=== PATIENT | female | born 1950 | race Caucasian/White ===

== ENCOUNTER → 2016-11-30 | Outpatient (CLI) | payer BC, MEDICARE ==
[~2016-11-30] MED LIST: REGADENOSON 0.4 MG/5 ML SYRINGE IV ONE
--- NOTE | 2016-11-30 12:08 | NM ---
EXAMINATION TYPE: NM stress lexiscan cardiolite DATE OF EXAM: 11/30/2016 COMPARISON: Chest x-ray 06/17/2015 HISTORY: Abnormal EKG, R 94.31 TECHNIQUE: After the intravenous administration of 10.5 mCi Tc 99m Sestamibi - Cardiolite resting SP ECT images acquired 45 minutes post injection. The patient received 0.4mg Lexiscan, 25.9 mCi Tc 99m Sestamibi - Stress images obtained [address] injection FINDINGS: Review of stress and rest SPECT images demonstrates no distinct perfusion abnormality. Gated analysi s shows normal wall motion with an estimated left ventricular ejection fraction of 53 %. IMPRESSION: No scintigraphic evidence for reversible ischemia.
--- NOTE | 2016-11-30 12:22 | ECHOF ---
Referral Reason:R94.31 Abn Ekg MEASUREMENTS -------- HEIGHT: 157.5 cm WEIGHT: 81.2 kg BP: 204/94 RVIDd: 2.3 cm (< 3.3) IVSd: 1.4 cm (0.6 - 1.1) LVIDd: 3.7 cm (3.9 - 5.3) LVPWd: 1.1 cm (0.6 - 1.1) IVSs: 1.7 cm LVIDs: 2.4 cm LVPWs: 1.3 cm LA Diam: 2.8 cm (2.7 - 3.8) LAESV Index (A-L): 11.36 ml/m Ao Diam: 2.7 cm (2.0 - 3.7) AV Cusp: 1.9 cm (1.5 - 2.6) MV EXCURSION: 14.946 mm (> 18.000) MV EF SLOPE: 25 mm/s (70 - 150) EPSS: 0.3 cm MV E Faraz: 0.93 m/s MV DecT: 161 ms MV A Faraz: 1.39 m/s MV E/A Ratio: 0.67 FINDINGS -------- Sinus rhythm. This was a technically good study. The left ventricular size is normal. There is moderate concentric left ventricular hypertrophy. Overall left ventricular systolic function is normal with, an EF between 55 - 60 %. The right ventricle is normal in size. Normal LA size by volume 22+/-6 ml/m2. The right atrium is normal in size. There is mild aortic valve sclerosis. Moderate mitral annular calcification present. The peak and mean MV gradients are 11.25mmHg 5.29mmHg as measured by doppler. The tricuspid valve appears structurally normal. No regurgitation noted There is no pulmonic regurgitation present. The aortic root size is normal. IVC Not well visulized. There is no pericardial effusion. CONCLUSIONS -------- 1. Sinus rhythm. 2. Moderate mitral annular calcification present. 3. The peak and mean MV gradients are 11.25mmHg 5.29mmHg as measured by doppler. 4. The tricuspid valve appears structurally normal. 5. No regurgitation noted 6. There is no pulmonic regurgitation present. 7. The aortic root size is normal. 8. IVC Not well visulized. 9. There is no pericardial effusion. 10. This was a technically good study. 11. The left ventricular size is normal. 12. There is moderate concentric left ventricular hypertrophy. 13. Overall left ventricular systolic function is normal with, an EF between 55 - 60 %. 14. The right ventricle is normal in size. 15. Normal LA size by volume 22+/-6 ml/m2. 16. The right atrium is normal in size. 17. There is mild aortic valve sclerosis. POLYSOMNOGRAPHY TECHNOLOGIST: Fay Vincent RDCS
--- NOTE | 2016-11-30 12:24 | EST ---
DATE OF SERVICE: 11/30/2016 TYPE OF REPORT: Lexiscan Cardiolite stress test INDICATION: Chest pain. BASELINE HEART RATE: 89 BASELINE BLOOD PRESSURE: 204/94 MAXIMUM HEART RATE: 112 MAXIMUM BLOOD PRESSURE: 139/84 85% MPHR: 133 100% MPHR: 156 METS: MAX STAGE REACHED: TOTAL EXERCISE TIME: Baseline EKG revealed a normal sinus rhythm with borderline voltage criteria for LVH. There is evidence of Q waves in V1 and V2 raising the possibility of prior anteroseptal NH. With Lexiscan administration, heart rate changed from 89 to 112 beats per minute and blood pressure changes from 204/94 to 139/84. EKG remained unchanged. Resting EKG revealed poor R wave progression with QS in leads V1 and V2 and also nonspecific ST-T changes in inferior leads. This is an inconclusive stress test by EKG criteria because of resting EKG changes. Patient did not have angina. The nuclear scan results, which are more pertinent , will be reported by the radiologist. ANDRES
== END | disposition home or self-care (01) ==
LOC: RADNMMAIN 09:05
PROVIDERS: ATTEND Internal Medicine Geriatric Medicine
DX: R94.31 Abnormal electrocardiogram [ECG] [EKG] (principal)
CPT/HCPCS: 93017; 93306; 78452; A9500; J2785

== ENCOUNTER → 2018-02-24 | Outpatient (CLI) | payer BC ==
[2018-02-24 19:13] LABS: T4, Free (Free Thyroxine) 1.4 ng/dL (0.80-1.80)
== END | disposition home or self-care (01) ==
LOC: LABWHC1 12:43
PROVIDERS: ATTEND Internal Medicine Interventional Cardiology
DX: E05.90 Thyrotoxicosis, unspecified without thyrotoxic crisis or storm (principal)
CPT/HCPCS: 36415; 84439; 84443

== ENCOUNTER → 2018-06-12 | Outpatient (CLI) | payer MEDICARE ==
--- NOTE | 2018-06-12 15:59 | NM ---
EXAMINATION TYPE: NM bone scan whole body DATE OF EXAM: 06/12/2018 COMPARISON: NONE HISTORY: Hypercalcemia Delayed whole-body scanning was performed following the injection of 23.9 mCi Tc 99m MDP. Images acq uired 3 hours post injection. FINDINGS: Abnormal uptake involving the right mental may been the basis of previous trauma or periodontal disea se. Abnormal uptake throughout the thoracic spine likely degenerative but nonspecific. Abnormal uptake in L4 and L5 is nonspecific may be degenerative. Compression fracture L4 not excluded . Abnormal uptake involving the knees and shoulders likely post arthritic. Abnormal uptake involving the right sacrum may be post arthritic. IMPRESSION: 1. Abnormal uptake involving the thoracic spine likely degenerative. 2. Nonspecific uptake involving the lower lumbar spine. Most likely degenerative or possibly compress ion fracture. Other etiologies not excluded correlate with x-ray as clinically warranted particularly at the L4 level which appears to be intense and linear in configuration.
== END | disposition home or self-care (01) ==
LOC: RADNMMAIN 11:28
PROVIDERS: ATTEND Internal Medicine Geriatric Medicine
DX: E83.52 Hypercalcemia (principal)
CPT/HCPCS: 78306; A9503

== ENCOUNTER → 2018-07-15 | Outpatient (CLI) | payer MEDICARE ==
--- NOTE | 2018-07-15 14:08 | US ---
EXAMINATION TYPE: US kidneys/renal and bladder DATE OF EXAM: 07/15/2018 COMPARISON: NONE CLINICAL HISTORY: N39.0 UTI. EXAM MEASUREMENTS: Right Kidney: 9.7 x 5.7 x 4.6 cm Left Kidney: 9.9 x 5.3 x 4.7 cm Right Kidney: small exophytic cyst measures 0.8 x 0.7 x 0.7 cm Left Kidney: No hydronephrosis or masses seen Bladder: wnl Bilateral Jets seen: No IMPRESSION: No hydronephrosis or nephrolithiasis bilaterally.
== END | disposition home or self-care (01) ==
LOC: RADUSWWP 13:34
PROVIDERS: ATTEND Internal Medicine Geriatric Medicine
DX: N39.0 Urinary tract infection, site not specified (principal)
CPT/HCPCS: 76770

== ENCOUNTER → 2019-06-15 | Outpatient (CLI) | payer MEDICARE ==
[2019-06-15 23:37] LABS: Luteinizing Hormone 23.3 mIU/mL
[2019-06-16 00:34] LABS: Follicle Stimulating Hormone 52.8 mIU/mL
[2019-06-16 00:40] LABS: Estradiol <11.8 pg/mL
== END | disposition home or self-care (01) ==
LOC: LABWHC1 15:26
PROVIDERS: ATTEND Internal Medicine
DX: R23.2 Flushing (principal)
CPT/HCPCS: 36415; 82627; 82670; 83001; 83002; 83835; 84402; 84403

== ENCOUNTER → 2019-06-29 | Outpatient (CLI) | payer MEDICARE | END | disposition home or self-care (01) | DX: M89.9 Disorder of bone, unspecified (principal) | CPT/HCPCS: 77080 ==

== ENCOUNTER → 2019-09-17 | Outpatient (CLI) | payer MEDICARE ==
--- NOTE | 2019-09-22 10:52 | MM ---
Reason for exam: screening (asymptomatic). Last mammogram was performed 4 years and 3 months ago. History: Patient is postmenopausal, has history of breast cancer at age 55, and had previous chest radiation therapy at age 55. Family history of breast cancer in maternal grandmother. Benign left breast needle localization of the left breast, June 05, 2011. Left Mammotome Panel of the left breast, June 04, 2011. Mastectomy of the left breast, 2011. Benign US left guided VAD of the left breast, November 21, 2010. Cancelled Left US Needle Biopsy of the left breast, August 01, 2007. Lumpectomy, June 15, 2005. Malignant US left guided mammotome of the left breast, June 07, 2005. Radiation therapy, 2005. Took hormonal contraceptives for 10 years. Physical Findings: A clinical breast exam by your physician is recommended on an annual basis and results should be correlated with mammographic findings. MG Screen Kranthi Unilateral W/Cad CC, MLO, and XCCL view(s) were taken of the right breast. Prior study comparison: June 09, 2015, right breast MG 3d diag mammo w/cad RT. May 25, 2011, left diagnostic mammogram w/CAD. The breast tissue is heterogeneously dense. This may lower the sensitivity of mammography. Benign appearing calcifications in the right breast. No suspicious abnormality. No significant changes when compared with prior studies. ASSESSMENT: Benign, BI-RAD 2 RECOMMENDATION: Routine screening mammogram of the right breast in 1 year.
== END | disposition home or self-care (01) ==
LOC: RADMAMWWP 13:06
PROVIDERS: ATTEND Internal Medicine Geriatric Medicine
DX: Z12.31 Encounter for screening mammogram for malignant neoplasm of breast (principal)
CPT/HCPCS: 77067

== ENCOUNTER → 2022-04-13 | Outpatient (CLI) | payer MEDICARE ==
--- NOTE | 2022-04-16 17:30 | MM ---
Reason for Exam: Hx of breast cancer, mastectomy. Last mammogram was performed 2 year(s) and 6 month(s) ago. Patient History: Menarche at age 15. First Full-Term at age 26. Postmenopausal. Breast cancer, left, age 55. Previous chest radiation therapy at age 55. Patient tested for BRCA2 outcome was negative. Patient used Hormonal Contraceptives for 10 years. 06/15/2005, Lumpectomy. 2011, Mastectomy on the Left side. 06/05/2011, Benign Excisional Biopsy on the left side. 06/04/2011, Core Biopsy on the Left side. 11/21/2010, Benign Core Biopsy on the left side. 06/07/2005, Malignant Core Biopsy on the left side. 2005, Radiation Therapy. 08/01/2007, Cancelled Left US Needle Biopsy on the left side. Maternal grandmother had breast cancer. Mother had ovarian cancer, age 49. Prior Study Comparison: 11/21/2010 Left Diagnostic Mammogram, [facility]. 05/25/2011 Left Diagnostic Mammogram, [facility]. 06/09/2015 Right Diagnostic Mammogram, [facility]. 09/17/2019 Bilateral Screening Mammogram, [facility]. Tissue Density: Right: There are scattered fibroglandular densities. Findings: Analyzed By CAD. Benign oils and round calcifications are noted. Small asymmetric densities remain unchanged. No significant change from prior exams. Overall Assessment: Benign, BI-RAD 2 Management: Screening Mammogram of the right breast in 1 year. 1. Patient should continue monthly self breast exams. 2. A clinical breast exam by your physician is recommended on an annual basis. 3. This exam should not preclude additional follow-up of suspicious palpable abnormalities. Electronically signed and approved by: Ricarda Rodriguez M.D. Radiologist
== END | disposition home or self-care (01) ==
LOC: RADBDWWP 13:17
PROVIDERS: ATTEND Internal Medicine Geriatric Medicine
DX: Z12.31 Encounter for screening mammogram for malignant neoplasm of breast (principal); Z78.0 Asymptomatic menopausal state; Z80.3 Family history of malignant neoplasm of breast; Z80.41 Family history of malignant neoplasm of ovary; Z85.3 Personal history of malignant neoplasm of breast; Z92.3 Personal history of irradiation
CPT/HCPCS: 77067

== ENCOUNTER → 2022-04-17 | Outpatient (CLI) | payer MEDICARE ==
--- NOTE | 2022-04-17 14:32 | BD ---
EXAMINATION TYPE: Axial Bone Density DATE OF EXAM: 04/17/2022 COMPARISON: DEXA bone scan 2019 CLINICAL HISTORY: 72 years year old Female. ICD-10 CODE: M81.0 AGE-RELATED OSTEOPOROSIS W/O CURRENT PATHOLOGIC Height: 30.75 Weight: 179 FRAX RISK QUESTIONS: Alcohol (3 or more units per day): NO Family History (Parent hip fracture): NO Glucocorticoids (More than 3mos): NO History of Fracture in Adulthood: NO Secondary Osteoporosis: 1. Type 1 Diabetes: NO 2. Hyperthyroidism: NO 3. Menopause before 45: NO 4. Malnutrition: NO 5. Chronic liver disease: NO Rheumatoid Arthritis: NO Current Tobacco Use: OCCASIONALLY RISK FACTORS HISTORY OF: Hip Fracture (Right/Left): NO Spine Fracture: NO History of Wrist Fracture: NO Surgery to Spine/Hip(right/left)/Wrist (right/left): NO Family History of Osteoporosis: NO Active: NO Diet low in dairy products/other sources of calcium: NO Postmenopausal woman: YES Take estrogen and/or progesterone medications: NO Lost more than 2 inches in height since high school: NO Frequent falls: NO Poor Health: NO Hyperparathyroidism: NO Adrenal Insufficiency: NO MEDICATIONS: Prednisone or other steroids: NO Thyroid Medications: NO Osteoporosis Medications: NO Additional Medications: NORCO, METFORMIN, METOPROLOL, CLONIDINE, ROSUVASTATIN, WOMAN'S ONE A DAY, VIT C, TUMERIC, CALCIUM, MAGNESIUM, VIT D, BREAST CA. WITH RADIATION 2005 EXAM MEASUREMENTS: Bone mineral densitometry was performed using the [employer] System. Bone mineral density as measured about the Lumbar spine is: ----- L1-L4(G/cm2): 1.738 T Score Values are as follows: ----- L1: 1.6 ----- L2: 3.9 ----- L3: 6.2 ----- L4: 7.5 ----- L1-L4: 4.7 Bone mineral density has: DECREASED -0.4 % since study of: 06/29/2019 Bone mineral density about the R hip (g/cm2): 1.124 Bone mineral density about the L hip (g/cm2): 1.104 T Score values are as follows: -----R Neck: 0.6 -----L Neck: 0.5 -----R Total: 2.2 -----L Total: 2.6 Bone mineral density has: DECREASED -1.9 % since study of: 06/29/2019 FRAX%s: The graph provided illustrates a 5.8% chance for a major osteoporotic fx and a 0.4% chance fo r the hips probability for fx in 10 years time. IMPRESSION: Normal (Values between +1 and -1 indicate normal bone mass). Consider repeating this study in 5 year s or sooner if there is some new clinical indication. NOTE: T-SCORE=SD OF THE YOUNG ADULT MEAN.
== END | disposition home or self-care (01) ==
LOC: RADBDWWP 12:35
PROVIDERS: ATTEND Internal Medicine Geriatric Medicine
DX: M81.0 Age-related osteoporosis without current pathological fracture (principal); Z78.0 Asymptomatic menopausal state
CPT/HCPCS: 77080

== ENCOUNTER → 2023-06-28 | Outpatient (CLI) | payer MEDICARE ==
--- NOTE | 2023-06-28 13:50 | MM ---
Reason for Exam: Follow-up at short interval from prior study. Last mammogram was performed 1 year(s) and 3 month(s) ago. Patient History: Menarche at age 15. First Full-Term at age 26. Postmenopausal. Breast cancer, left, age 55. Previous chest radiation therapy at age 55. Patient tested for BRCA2 outcome was negative. Patient used Hormonal Contraceptives for 10 years. 06/15/2005, Lumpectomy. 2011, Mastectomy on the Left side. 06/05/2011, Benign Excisional Biopsy on the left side. 06/04/2011, Core Biopsy on the Left side. 11/21/2010, Benign Core Biopsy on the left side. 06/07/2005, Malignant Core Biopsy on the left side. 2005, Radiation Therapy. 08/01/2007, Cancelled Left US Needle Biopsy on the left side. Maternal grandmother had breast cancer. Mother had ovarian cancer, age 49. Prior Study Comparison: 06/09/2015 Right Diagnostic Mammogram, [facility]. 09/17/2019 Bilateral Screening Mammogram, [facility]. 04/13/2022 Right MG 3D scr erica unilateral w/cad., [facility]. Tissue Density: Right: There are scattered areas of fibroglandular density. Findings: Analyzed By CAD. Global asymmetry upper outer quadrant is unchanged. Scattered benign oil cyst calcifications redemonstrated. Areas of asymmetric density are unchanged. No significant change from prior exams. Overall Assessment: Benign, BI-RAD 2 Management: Diagnostic Mammogram of the right breast in 1 year. . Results were given to the patient verbally at the time of exam. Patient should continue monthly self-breast exams. A clinical breast exam by your physician is recommended on an annual basis. This exam should not preclude additional follow-up of suspicious palpable abnormalities. Electronically signed and approved by: Ricarda Rodriguez M.D. Radiologist
== END | disposition home or self-care (01) ==
LOC: RADMAMWWP 13:09
PROVIDERS: ATTEND Internal Medicine Geriatric Medicine
DX: R92.321 Mammographic fibroglandular density, right breast (principal); C50.919 Malignant neoplasm of unspecified site of unspecified female breast; Z80.3 Family history of malignant neoplasm of breast; Z78.0 Asymptomatic menopausal state; R92.1 Mammographic calcification found on diagnostic imaging of breast
CPT/HCPCS: 77065; G0279; 77061

== ENCOUNTER → 2023-12-23 | Outpatient (CLI) | payer MEDICARE ==
[2023-12-23 15:48] LABS: Partial Thromboplastin Time 23.2 sec (22.0-30.0); Prothrombin Time 10.6 sec (10.0-12.5)
[2023-12-23 18:22] LABS: HCT 39.9 % (37.2-46.3); HGB 12.6 g/dL (12.0-15.0); MCH 30.2 pg (27.0-32.0); MCHC 31.6 g/dL (32.0-37.0); MCV 95.7 FL (80.0-97.0); Mean Platelet Volume 10.2 FL (9.5-12.2); NRBC Per 100 WBC 0 X 10*3/uL (0.00-0.01); Platelet Count 364 X 10*3/uL (140-440); RBC 4.17 X 10*6/uL (4.10-5.20); RDW 14.4 % (11.5-14.5); WBC 6.13 X 10*3/uL (4.50-10.00)
[2023-12-23 20:18] LABS: ALT 13 U/L (8-44); AST 21 U/L (13-35); Albumin 3.8 g/dL (3.8-4.9); Alkaline Phosphatase 40 U/L (41-126); BUN/Creat Ratio 29.69 Ratio (12.00-20.00); Blood Urea Nitrogen 38.6 mg/dL (9.0-27.0); Calcium 9.7 mg/dL (8.7-10.3); Carbon Dioxide 22.9 mmol/L (21.6-31.8); Chloride 106 mmol/L (96-109); Glucose 109 mg/dL (70-110); Potassium 5.6 mmol/L (3.5-5.5); Sodium 141 mmol/L (135-145); Total Bilirubin 0.4 mg/dL (0.3-1.2); Total Protein 5.8 g/dL (6.2-8.2)
== END | disposition home or self-care (01) ==
LOC: LABPAT 14:52
PROVIDERS: ATTEND Orthopaedic Surgery
DX: Z01.818 Encounter for other preprocedural examination (principal); Z22.322 Carrier or suspected carrier of Methicillin resistant Staphylococcus aureus; M17.11 Unilateral primary osteoarthritis, right knee; R94.31 Abnormal electrocardiogram [ECG] [EKG]
CPT/HCPCS: 80053; 85027; 85610; 85730; 87070; 93005

== ENCOUNTER 2024-01-06 05:33 | Day surgery (SDC) | payer MEDICARE ==
[~2024-01-06 05:33] MED LIST changes: -REGADENOSON 0.4 MG/5 ML SYRINGE IV ONE; +TRANEXAMIC 1,000 MG/100ML-NACL 1,000 MG in SALINE 1 100ML.BAG IVPB PRN
[2024-01-06] MEDS: IV FLUID CONTINUATION 1,000 ML IV ONE (05:46)
[2024-01-06] MEDS ORDERED: LIDOCAINE 1% (10MG/ML) FOR IV START INTRADERMA PRN (05:48)
[2024-01-06] MEDS: GABAPENTIN 300 MG CAP PO PRN (06:25)
[2024-01-06] MEDS: ACETAMINOPHEN TAB 500 MG TAB PO PRN (06:25)
[2024-01-06] MEDS: MELOXICAM 7.5 MG TAB PO PRN (06:26)
[2024-01-06] MEDS: DEXAMETHASONE SOD PHOSPHATE 4 MG/ML 1 ML VIAL IVP STA (06:27)
[2024-01-06] MEDS: ONDANSETRON 4 MG/2 ML VIAL IVP ONE (06:27)
[2024-01-06] MEDS: LACTATED RINGERS 1,000 ML IV SCH (06:31)
[2024-01-06] MEDS: LIDOCAINE 1% (10MG/ML) FOR IV START INTRADERMA ONE (06:32)
[2024-01-06] MEDS: MIDAZOLAM 2 MG/2 ML VIAL IV ONE (06:37)
[2024-01-06 06:38] LABS: Glucose,Whole Blood 109 mg/dL (70-110)
[2024-01-06] MEDS ORDERED: TRANEXAMIC 1,000 MG/100ML-NACL PREMIX BAG ONE (06:59)
[2024-01-06] MEDS ORDERED: SODIUM CHLORIDE 0.9% (PF) 10 ML VIAL ONE (06:59)
[2024-01-06] MEDS ORDERED: PROPOFOL 10 MG/ML 20 ML VIAL IV ONE (06:59)
[2024-01-06] MEDS ORDERED: MIDAZOLAM 2 MG/2 ML VIAL ONE (06:59)
[2024-01-06] MEDS ORDERED: ROPIVACAINE 5 MG/ML 30 ML VIAL ONE (06:59)
[2024-01-06] MEDS ORDERED: DEXAMETHASONE SOD PHOSPHATE 4 MG/ML 1 ML VIAL ONE (06:59)
[2024-01-06] MEDS: ceFAZolin 1,000 MG in SODIUM CHLORIDE 0.9% 1,000 ML IRRIGATION ONE (07:02)
--- NOTE | 2024-01-06 08:15 | P.OP ---
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 Procedure(s) Performed: Right total knee arthroplasty Implants: [employer] Journey II CR Oxinium Bi-cruciate stabilized femoral component size 3, right [employer] Journey nonporous tibial baseplate size 2, right [employer] Journey II, Constrained articular insert, size 9 mm, Size 1-2, right [employer] Journey Eryn II resurfacing patellar component, oval, 29 mm All components were cemented using Palacos R bone cement The articulation is Oxinium on polyethylene Anesthesia: spinal Surgeon: Mathieu Tillman Electrical Design Technician #1: Yamel Jernigan Estimated Blood Loss (ml): 25 Pathology: none sent Condition: stable Disposition: PACU Indications for Procedure: The patient's knee is end-stage, and conservative management has failed. The operation of knee replacement has been discussed at length in the office, as well as potential risks and complications. These are inclusive of, but not limited to: Infection, bleeding, scarring, discomfort, stiffness, blood vessel and nerve damage, need for further surgery, failure to relieve symptoms, persistence, recurrence, or worsening of problems, loosening, dislocation, wear, blood clot, pulmonary embolism, , gait dysfunction, stiffness, and other risks as discussed in the office. Patient elects to proceed and the consent form has been signed. Operative Findings: The operative findings are consistent with severe osteoarthritis of the right knee with a valgus deformity Description of Procedure: The patient was seen in the preoperative area, the consent was reviewed and the operative site was marked with a skin marker. The patient verified the procedure and the operative site. An adductor canal pain catheter and an iPACK block were placed by anesthesia in the preoperative area. The patient was then brought to the operating room and positioned on the operating room table in the supine position. Preoperative antibiotics and a gram of tranexamic acid were given intravenously. A spinal anesthetic was administered by the anesthesia department. Care was taken to make sure that all pressure points were adequately padded. A tourniquet was placed on the upper thigh and the lower extremity was prepped with ChloraPrep and draped in usual sterile fashion. A universal time-out was then performed which confirmed the patient's name, surgical site, ALLERGIES, and consent. The lower extremity was then exsanguinated and tourniquet was inflated to 250 mmHg. A standard anterior midline approach to the knee was performed. The skin and subcutaneous tissue were sharply dissected down to the patellar tendon. A medial parapatellar arthrotomy was then performed. The knee was then extended, the patellar was everted, and the knee was flexed. The infra-patellar fat pad was removed in order to enhance exposure. The anterior horns of both menisci were excised, and a release was performed to the posterior medial aspect of the knee. On gross visual inspection, there was complete loss of articular carti abelardo in the medial and patellofemoral joint spaces. There was also significant cartilage damage in the lateral compartment. There were multiple periarticular osteophytes globally about the knee which were then removed with a Ronguer. The femoral canal was then opened with the 9.5 mm intramedullary drill. The 8 mm intramedullary ameya was then inserted into the femoral canal with the distal femoral cutting guide set for 5 of valgus. The distal femoral cutting block was then pinned in place. The intramedullary ameya was then removed, and the distal femur was then cut. The cutting block was then removed and the cut was checked for symmetry. The resected bone was then measured to confirm the appropriate distal femoral resection. Next, the sizing guide was then placed and set for 3 external rotation based off of the epicondylar axis and Roz's line. Pins were then placed and the drill holes, and the femur was sized with the sizing stylus. The pins were then removed, and the sizing guide was then removed. The spikes of the appropriate size femoral block was then placed into the predrilled holes, and malleted into place. Two 45 mm pins were then placed into the fixation holes on the cutting block. An jarod wing was then used to ensure there would be no notching with the anterior cut. The anterior condyles were cut without notching. The anterior chord cut was then pe rformed, followed by the posterior cut, posterior chamfer cut, and the anterior chamfer cut. The collateral ligaments were protected during the entire process. The cutting block was then removed. Any remaining bone and osteophytes were removed from the femur with a Ronguer. Attention was then directed to the tibia. The remaining ACL was removed with a Ronguer, and the tibia was then gently subluxed forward with a large bent knee retractor. Any remaining menisci were excised. The posterior lateral corner was cauterized in order to coagulate the lateral geniculate artery. The extra medullary tibial cutting guide was then placed, set for the appropriate rotation, slope, and depth of resection. The proximal tibia cutting guide was then pinned in place. Proximal tibia was then cut and sized. A curved osteotome was then used to remove any posterior osteophytes from the distal femur. The femoral trial was placed. The box reaming guide was placed. The reamer was then used to remove the intracondylar femoral bone. The box trial was then placed. The tibial trial was placed with the appropriate-sized insert. The knee was able to fully extend and flex to 130 and was stable throughout all range of motion. The knee was then extended and the patella was everted. Patella was then measured, and then using an osteotomy guide, the patella was cut at the appropriate level. The patellar component was sized. The patellar drill guide was placed and the patella was drilled. The patella trial was then placed. The knee was then taken through range of motion with the patella trial and the patella tracked normally using the no thumbs technique. The patella trial was then removed. The knee was then flexed and lug holes were drilled through the femoral trial and the femoral trial was then removed. The tibial was then re-exposed, and the tibial broach guide was then pinned in place after it was set for the appropriate rotation to allow for the most coverage without overhang. The tibia was then reamed and broached. The femoral canal was plugged with autologous bone. The cut surfaces of bone were then irrigated with pulsatile lavage. The knee was also irrigated with Irrisept solution. The components were then opened, the cement was mixed. Cement was placed on the backside of the femoral, tibial, and patellar components. Cement was then applied to the tibial surface and pressurized into the surface using finger pressurization technique. The tibial component was then applied and excess cement was removed after it was impacted securely noted to be flush with the cut surface. In similar fashion, the cement was applied to the cut femoral surface, pressurized and using finger pressurization the component was impacted in place. Excess cement was removed. The polyethylene spacer was then implanted and locked into position. Patellar component was then applied in a similar technique and the patellar clamp was used to hold patella in place while the cement hardened. The knee was held in full extension while the cement hardened. Once the cement had fully hardened, the knee was reinspected. Any other cement extrusion was removed the final range of motion testing showed range of motion from 0-130 with excellent stability, both medial and laterally and appropriate alignment of the leg. Patella tracked normally. After the cemented hardened, the tourniquet was released and hemostasis was obtained. A second gram of transexamic acid was given intravenously. The knee was again irrigated. The knee was again taken through range of motion and found to be stable throughout all range of motion of 0-130, and the patella tracked normally. The fascia was then closed with 0 Vicryl followed by #2 strata fix suture. The subcutaneous tissue was closed with 3-0 Vicryl and 3-0 strata fix. Exofin glue was used for the skin and placed with the knee in flexion. After the glue had dried, and Optafoam silver impregnated dressing was applied. A lightly compressive dressing was applied using web roll and Alfa wrap. Patient was then transferred to the stretcher and taken to recovery room in stable condition. Sponge and needle counts were correct. The tax accounting assistant BALBINA Mon was required due the complexity surgery and the need for a skilled surgical coordinator. She assisted in positioning, draping, retraction, and closure of the wound.
[2024-01-06] MEDS: LACTATED RINGERS 1,000 ML IV ONE (08:16)
--- NOTE | 2024-01-06 08:21 | P.ANPRN ---
Procedure Note - Anesthesia - Nerve Block Performed Right Adductor Canal Infusion Time Out Performed: Yes Date of Procedure: 01/06/24 Procedure Start Time: 06:36 Procedure Stop Time: 06:42 Location of Patient: PreOp Indication: Acute Post-Operative Pain, Requested by Surgeon Sedation Type: Sedate with meaningful contact maintained Preparation: Sterile Prep, Sterile Dressing Position: Supine Catheter: Indwelling Needle Types: Pajunk Needle Gauge: 18 Ultrasound used to visualize needle placement: Yes Ultrasound used to observe medication spread: Yes Injectate: 0.5% Ropivacaine (see comment for volume) (20 ml + 10 ml NS) Blood Aspirated: No Pain Paresthesia on Injection Noted: No Resistance on Injection: Normal Image Stored and Saved: Yes Events: Uneventful and Well Tolerated
--- NOTE | 2024-01-06 08:22 | P.ANPRN ---
Procedure Note - Anesthesia - Nerve Block Performed Right iPack Single Time Out Performed: Yes Date of Procedure: 01/06/24 Procedure Start Time: 06:43 Procedure Stop Time: 06:49 Location of Patient: PreOp Indication: Acute Post-Operative Pain, Requested by Surgeon Sedation Type: Sedate with meaningful contact maintained Preparation: Sterile Prep Position: Left Lateral Needle Types: Pajunk Needle Gauge: 21 Ultrasound used to visualize needle placement: Yes Ultrasound used to observe medication spread: Yes Injectate: 0.5% Ropivacaine (see comment for volume) (20 ml + 10 ml NS + 4 mg Dexamethasone) Blood Aspirated: No Pain Paresthesia on Injection Noted: No Resistance on Injection: Normal Image Stored and Saved: Yes Events: Uneventful and Well Tolerated
[2024-01-06] MEDS ORDERED: NA PHOS,M-B/NA PHOS,DI-BA 133 ML ENEMA RECTAL PRN (08:44)
[2024-01-06] MEDS ORDERED: NALOXONE 0.4 MG/ML 1 ML VIAL IV PRN (08:44)
[2024-01-06] MEDS ORDERED: MAGNESIUM HYDROXIDE 2,400 MG/30 ML CUP PO PRN (08:44)
[2024-01-06] MEDS ORDERED: HYDROmorphone 0.5 MG/0.5 ML SYRINGE IVP PRN ×2 (08:44)
[2024-01-06] MEDS ORDERED: bisacodyL 10 MG SUPP RECTAL PRN (08:44)
[2024-01-06] MEDS ORDERED: HYDROcodone/APAP 7.5-325MG 1 EACH TAB PO PRN (08:46)
[2024-01-06] MEDS: ROPIVACAINE 1,100 MG, SODIUM CHLORIDE 0.9% 500 ML 330 ML, EMPTY PAIN BALL 1 EACH MISCELLANE PRN (08:59)
--- NOTE | 2024-01-06 09:08 | XR ---
EXAMINATION TYPE: XR knee limited RT DATE OF EXAM: 01/06/2024 COMPARISON: NONE TECHNIQUE: Two views submitted HISTORY: Post op FINDINGS: There is a prosthetic knee in near anatomic alignment. There is soft tissue edema and soft tissue e mphysema. Soft tissue ossification anteriorly. Vascular calcifications noted. IMPRESSION: 1. Postoperative change. [facility], , 01/06/2024 9:06 AM
[2024-01-06 09:09] LABS: Glucose,Whole Blood 126 mg/dL (70-110)
[2024-01-06] MEDS: droPERidol 5 MG/2 ML VIAL IVP ONE (11:57)
[2024-01-06] MEDS: HYDROmorphone 0.5 MG/0.5 ML SYRINGE IVP PRN ×2 (11:58→18:04)
[2024-01-06] MEDS: HYDROcodone/APAP 7.5-325MG 1 EACH TAB PO PRN (14:51)
[2024-01-06] MEDS: SODIUM CHLORIDE 0.9% 1,000 ML IV SCH (14:53)
[2024-01-06 16:19] LABS: Glucose,Whole Blood 153 mg/dL (70-110)
[2024-01-06] MEDS: ONDANSETRON 4 MG/2 ML VIAL IVP PRN (18:21)
[2024-01-06] MEDS: ASPIRIN 325 MG TAB PO SCH (20:57)
[2024-01-06] MEDS: LORATADINE 10 MG TAB PO SCH (20:57)
[2024-01-06] MEDS: metFORMIN 500 MG TAB PO SCH (20:57)
[2024-01-06] MEDS: CYANOCOBALAMIN 500 MCG TAB PO SCH (20:57)
[2024-01-06] MEDS: oxyBUTYnin chloride 5 MG TAB PO SCH (20:57)
[2024-01-06] MEDS: SENNOSIDES-DOCUSATE SODIUM 1 EACH TAB PO SCH (20:57)
[2024-01-06] MEDS: MAGNESIUM OXIDE 400 MG TAB PO SCH (20:58)
[2024-01-06] MEDS: lisinopriL 5 MG TAB PO SCH (20:58)
[2024-01-06] MEDS: ATORVASTATIN 20 MG TAB PO SCH (20:58)
[2024-01-06] MEDS: ASCORBIC ACID 500 MG TAB PO SCH (20:58)
[2024-01-06] MEDS: cloNIDine HCL 0.1 MG TAB PO SCH (20:58)
[2024-01-06] MEDS: DOCUSATE 100 MG CAP PO SCH (20:59)
[2024-01-06 21:02] LABS: Glucose,Whole Blood 205 mg/dL (70-110)
[2024-01-07] MEDS: CYCLOBENZAPRINE 10 MG TAB PO PRN (05:52)
[2024-01-07 05:53] LABS: Glucose,Whole Blood 89 mg/dL (70-110)
[2024-01-07 08:20] LABS: Basophils % (A) 0 %; Eosinophils # (A) 0.1 k/uL (0-0.7); Eosinophils % (A) 1 %; HCT 39.1 % (34.0-46.0); HGB 12.1 gm/dL (11.4-16.0); Hypochromasia Marked; Lymphocytes # (A) 1.9 k/uL (1.0-4.8); Lymphocytes % (A) 22 %; MCH 30.1 pg (25.0-35.0); MCHC 30.8 g/dL (31.0-37.0); MCV 97.7 fL (80.0-100.0); Mean Platelet Volume 7.5; Monocytes # (A) 0.6 k/uL (0-1.0); Monocytes % (A) 7 %; Neutrophils # (A) 6.1 k/uL (1.3-7.7); Neutrophils % (A) 69 %; Platelet Count 387 k/uL (150-450); RDW 13.6 % (11.5-15.5); WBC 8.8 k/uL (3.8-10.6)
[2024-01-07] MEDS: SODIUM BICARBONATE TAB 650 MG TAB PO SCH (08:36)
[2024-01-07] MEDS: MULTIVITAMINS, THERA 1 EACH TAB PO SCH (08:37)
[2024-01-07] MEDS: FENOFIBRATE 160 MG TAB PO SCH (08:37)
[2024-01-07] MEDS: PIOGLITAZONE 30 MG TAB PO SCH (08:38)
[2024-01-07] MEDS: CALCIUM CARB-VIT D 500 MG-5 MCG TAB PO SCH (08:38)
[2024-01-07] MEDS: METOPROLOL SUCCINATE (ER) 100 MG TAB.ER.24H PO SCH (08:39)
[2024-01-07] MEDS: CHOLECALCIFEROL 25 MCG (1000 IU) TABLET PO SCH (08:39)
--- NOTE | 2024-01-07 08:41 | P.PN ---
Progress Note - Text Adequate analgesia. No complication.
[2024-01-07] MEDS ORDERED: ASPIRIN 81 MG PO SCH (09:00)
--- NOTE | 2024-01-07 09:08 | P.DS ---
Providers Expected date of discharge: 01/07/24 Attending physician: Mathieu Tillman Consults: 01/06/24 08:44 Consult Physician Routine Consulting Provider: Gibson Justin Reason/Comments: medical management Do you want consulting provider notified?: Yes Primary care physician: Gibson Justin - Discharge Diagnosis(es) (1) Osteoarthritis of right knee Current Visit: Yes Status: Acute (2) Status post total right knee replacement Current Visit: Yes Status: Acute Hospital Course: This is a 73-year-old female with known history of degenerative arthritis of the right knee. The patient presented for evaluation as an outpatient. After discussion and consideration patient elects to proceed with total knee arthroplasty. The patient is seen preoperatively by Dr. Tillman and medically cleared for surgery by their primary care physician. Patient is admitted to [facility] on 01/06/2024 for total knee arthroplasty. The procedure is performed without complication or sequelae. The patient is doing well postoperatively. Labs and vital signs are stable on day of discharge. On day of discharge patient's knee incision is healing well. There is minimal erythema. There is no drainage noted at this time. There is minimal soft tissu e swelling to the knee. Patient has full foot and ankle motion without difficulty or pain. Calf is soft and nontender to palpation. Neurovascular status to the right lower extremity is intact. Patient is discharged home in good condition. Please see [facility] rec for accurate list of home medications. Plan - Discharge Summary Discharge Rx Participant: Yes New Discharge Prescriptions: New Aspirin 325 mg PO BID #60 tab HYDROcodone/APAP 7.5-325MG [Thornton 7.5-325] 1 - 2 tab PO Q6H PRN #32 tab PRN Reason: Pain Sennosides [Senokot] 2 tab PO DAILY PRN #60 tablet PRN Reason: Constipation No Action Sodium Bicarbonate Tab 650 mg PO QAM Multivit with Calcium,Iron,Min [Women's Multivitamin] 1 tab PO DAILY oxyBUTYnin chloride [Ditropan] 5 mg PO BID cloNIDine HCL [Catapres] 0.2 mg PO BID Pioglitazone [Actos] 30 mg PO QAM Hydrocodone/Acetaminophen [Hydrocodone/Acetaminophen 7.5-325] 1 tab PO Q8H PRN PRN Reason: Pain Etodolac [Lodine] 400 mg PO BID Docusate Sodium [Dok] 100 mg PO BID Rosuvastatin [Crestor] 10 mg PO HS Cyanocobalamin (Vitamin B-12) [Vitamin B-12] 1,000 mcg PO HS Loratadine 1 tab PO HS Curcumin-Phosphatidylcholine [Curcumin Phytosome] 1 tab PO DAILY metFORMIN HCL 1,000 mg PO BID lisinopriL [Zestril] 5 mg PO HS Metoprolol Succinate (ER) [Toprol XL] 100 mg PO QAM Magnesium 400 mg PO HS Fenofibrate Nanocrystallized [Fenofibrate] 145 mg PO DAILY Cyclobenzaprine [Flexeril] 10 mg PO BID PRN PRN Reason: Pain Cholecalciferol [Vitamin D3 (25 Mcg = 1000 Iu)] 1 tab PO DAILY Calcium Carbonate/Vitamin D3 [Calcium 600 mg-D3 20 mcg (800 unit)] 1 tab PO DAILY Aspirin [Children's Aspirin] 81 mg PO QAM Ascorbic Acid [Vitamin C] 500 mg PO HS Discharge Medication List Ascorbic Acid [Vitamin C] 500 mg PO HS 12/30/23 [History] Aspirin [Children's Aspirin] 81 mg PO QAM 12/30/23 [History] Calcium Carbonate/Vitamin D3 [Calcium 600 mg-D3 20 mcg (800 unit)] 1 tab PO DAILY 12/30/23 [History] Cholecalciferol [Vitamin D3 (25 Mcg = 1000 Iu)] 1 tab PO DAILY 12/30/23 [History] Curcumin-Phosphatidylcholine [Curcumin Phytosome] 1 tab PO DAILY 12/30/23 [History] Cyanocobalamin (Vitamin B-12) [Vitamin B-12] 1,000 mcg PO HS 12/30/23 [History] Cyclobenzaprine [Flexeril] 10 mg PO BID PRN 12/30/23 [History] Docusate Sodium [Dok] 100 mg PO BID 12/30/23 [History] Etodolac [Lodine] 400 mg PO BID 12/30/23 [History] Fenofibrate Nanocrystallized [Fenofibrate] 145 mg PO DAILY 12/30/23 [History] Hydrocodone/Acetaminophen [Hydrocodone/Acetaminophen 7.5-325] 1 tab PO Q8H PRN 12/30/23 [History] Loratadine 1 tab PO HS 12/30/23 [History] Magnesium 400 mg PO HS 12/30/23 [History] Metoprolol Succinate (ER) [Toprol XL] 100 mg PO QAM 12/30/23 [History] Multivit with Calcium,Iron,Min [Women's Multivitamin] 1 tab PO DAILY 12/30/23 [History] Pioglitazone [Actos] 30 mg PO QAM 12/30/23 [History] Rosuvastatin [Crestor] 10 mg PO HS 12/30/23 [History] Sodium Bicarbonate Tab 650 mg PO QAM 12/30/23 [History] cloNIDine HCL [Catapres] 0.2 mg PO BID 12/30/23 [History] lisinopriL [Zestril] 5 mg PO HS 12/30/23 [History] metFORMIN HCL 1,000 mg PO BID 12/30/23 [History] oxyBUTYnin chloride [Ditropan] 5 mg PO BID 12/30/23 [History] Aspirin 325 mg PO BID #60 tab 01/06/24 [Rx] HYDROcodone/APAP 7.5-325MG [Thornton 7.5-325] 1 - 2 tab PO Q6H PRN #32 tab 01/06/24 [Rx] Sennosides [Senokot] 2 tab PO DAILY PRN #60 tablet 01/06/24 [Rx] Follow up Appointment(s)/Referral(s): [facility],Equipment [NON-STAFF] - As Needed (*Call [facility] once home to arrange delivery of the Continous Passive Motion (CPM) machine.) [facility] [NON-STAFF] - 1-2 Days ([facility] will call you to schedule your in home nursing visits. ) Mathieu Tillman DO [Doctor of Osteopathic Medicine] - 01/20/24 1:30 pm (With Yamel) Activity/Diet/Wound Care/Special Instructions: Weightbearing as tolerated with a walker. CPM 5-6h daily as tolerated. Leave dressing intact. Dressing may be removed by home care nurse or by patient in 7 days. Then change dressing twice daily until follow up. May shower with initial dressing intact and after removal. If dressing become saturated, please remove. Recommend use of compression stockings daily until follow up to help prevent swelling and blood clots. May remove at night before sleeping. Please take aspirin 325mg twice daily for 30 days to prevent blood clots. Please follow up with [facility] and call with any questions or concerns, . Discharge Disposition: HOME WITH HOME HEALTH SERVICES
[2024-01-07 11:31] LABS: Glucose,Whole Blood 138 mg/dL (70-110)
[2024-01-07 16:43] LABS: Glucose,Whole Blood 134 mg/dL (70-110)
[2024-01-07] MEDS: KETOROLAC 15 MG/ML 1 ML VIAL IVP PRN (18:13)
[2024-01-07 19:43] VITALS: TEMP 97.8
[2024-01-07 20:55] LABS: Glucose,Whole Blood 160 mg/dL (70-110)
--- NOTE | 2024-01-07 22:04 | P.CONS ---
History of Present Illness - Reason for Consult Consult date: 01/06/24 Medical management Requesting physician: Mathieu Tillman - Chief Complaint Post right total knee arthroplasty - History of Present Illness HISTORY OF PRESENT ILLNESS: 73-year-old with active medical history of Breast cancer post left-sided mastectomy radiation and chemotherapy, history of type 2 diabetes, hypertension, hyperlipidemia, osteoarthritis, chronic lower back pain, chronic pain management, mild obesity, mild obstructive sleep apnea, COPD, mild incontinence, chronic constipation and other who has been suffering from severe arthritis of the right knee with failure to conservative management for the last few years patient had steroid injection physical therapy and topical care along with the brace and other with persistent pain discomfort and swelling with decreased mobility and ability to walk and ambulate. Patient ended up seeing Dr. Tillman with failure to conservative management decided to do right total knee arthroplasty which was done today successfully with no major complication. Patient hemodynamically stable, pain is well-controlled, medication reconciliation was done patient admitted to the floor afterward. I require little bit help while she is in the hospital and will see if she is getting need to go to any rehab. REVIEW OF SYSTEMS: CONSTITUTIONAL: Mildly overweight no acute respiratory distress. EYES: No icterus sclerae, no conjunctivitis. EARS, NOSE, MOUTH, THROAT, and FACE: No sore throat, lymphadenopathy, carotid bruits or deformity. RESPIRATORY: Slight shortness of breath no cough or wheezes. CARDIOVASCULAR: Positive PND orthopnea palpitation. GASTROINTESTINAL: No Abd pain, Nausea or vomiting, no Diarrhea or constipation, No GI Bleed, no distention or masses. GENITOURINARY: Negative for Hematuria or UTI, no kidney stones. INTEGUMENT/BREAST: Negative for any muscular injury with mild osteoarthritis.. HEMATOLOGIC/LYMPHATIC: Negative for bleed or purpura. MUSCULOSKELTAL: Generalized myalgia and lower back pain. NEURLOGICAL: No LOC, Sz or syncope, blurred vision dizziness or abnormality.. BEHAVIORAL/PSYCH: Negative. ENDOCRINE: Negative. PHYSICAL EXAMINATION: General Appearance: Alert, cooperative, no distress, appears stated age. Neck HEENT: Supple, no lymphadenopathy, no thyroid enlargement, no carotid bruits. Lungs: Mildly overweight no acute respiratory distress. Decreased expansion bilaterally with fine rhonchi no crackles or wheezes. Chest Wall: Decreased expansion with deep inspiration no tenderness and no deformity was found on exam, no costochondral pain or discomfort. Heart: Regular rate and rhythm, S1, S2 normal, no murmur, rub or gallop. Back: Symmetric, no curvature, ROM normal, no CVA tenderness. Abdomen: Soft, non-tender, bowel sounds active all four quadrants, no masses, no organomegaly. Extremities: Right knee so far with dressing around incision site no signs of induration or bleeding. Pulses: 2+ and symmetric. Skin: Skin color, texture, tugor normal, no rashes or lesions. Neurologic: Alert oriented x3 cranial nerves II through XII intact, no motor deficit, no abnormal balance or gait. ASSESSMENT AND PLAN: _Post right total knee arthroplasty: Continue postsurgical protocol with GI, DVT, pulmonary prophylaxis protocol, continue pain management, continue to watch symptoms carefully also resume home medication watch mobility advance with help with physical therapy as well as earlier tonight. _Type 2 diabetes: Has been on combination of metformin 1000 mg twice a day, pioglitazone 30 mg daily continue both medication continue Accu-Chek sliding scales coverage. _Atherosclerotic heart disease: Was seen and evaluated by cardiology before surgery and clear, will continue current medication medical management for now. _Hypertension: Remain on lisinopril 5 mg, clonidine 0.2 mg twice a day still on metoprolol succinate 100 mg daily. _Hyperlipidemia: Will continue patient on fenofibrate 145 mg a day along with rosuvastatin 10 mg a day. _Chronic pain syndrome: With chronic degenerative disc disease has been on hydrocodone along with Flexeril for the last few years post epidural injection and other pain management. _Overflow incontinence: Has been on oxybutynin with slightly better control symptoms. _Stage III chronic kidney disease: GFR at 44 will continue hydration watch for any decline in kidney function also patient has mild hyperkalemia to watch symptoms carefully repeat potassium level tomorrow morning. _History of breast cancer since 2005 has been in remission with no recurrent episode. _Severe GERD/GI prophylaxis: Continue patient on pantoprazole 40 mg daily. _DVT prophylaxis: Will continue protocol per orthopedic team that patient will be on aspirin 325 mg twice a day for the next 2 weeks. CODE STATUS: Full code. Dr. Tillman thank you much for the consult if I can be any further help to please let me know. Past Medical History Past Medical History: Cancer, Diabetes Mellitus, Hyperlipidemia, Hypertension, Osteoarthritis (OA) Additional Past Medical History / Comment(s): Type II DM, heart murmur, Lt.breast cancer 2005 History of Any Multi-Drug Resistant Organisms: None Reported Past Surgical History: Breast Surgery, Cholecystectomy Additional Past Surgical History / Comment(s): Rt. rotator cuff repair, Lt. mastectomy Past Anesthesia/Blood Transfusion Reactions: Motion Sickness Additional Past Anesthesia/Blood Transfusion Reaction / Comm: "slow to wake up" Smoking Status: Former smoker - Past Family History Mother Family Medical History: Cancer Additional Family Medical History / Comment(s): ovarian cancer Father Family Medical History: Cancer Additional Family Medical History / Comment(s): throat cancer Medications and Allergies Home Medications Medication Instructions Recorded Confirmed Type Ascorbic Acid [Vitamin C] 500 mg PO HS 12/30/23 12/30/23 History Aspirin [Children's Aspirin] 81 mg PO QAM 12/30/23 12/30/23 History Calcium Carbonate/Vitamin D3 1 tab PO DAILY 12/30/23 12/30/23 History [Calcium 600 mg-D3 20 mcg (800 unit)] Cholecalciferol [Vitamin D3 (25 1 tab PO DAILY 12/30/23 12/30/23 History Mcg = 1000 Iu)] Curcumin-Phosphatidylcholine 1 tab PO DAILY 12/30/23 12/30/23 History [Curcumin Phytosome] Cyanocobalamin (Vitamin B-12) 1,000 mcg PO HS 12/30/23 12/30/23 History [Vitamin B-12] Cyclobenzaprine [Flexeril] 10 mg PO BID PRN 12/30/23 12/30/23 History Docusate Sodium [Dok] 100 mg PO BID 12/30/23 12/30/23 History Etodolac [Lodine] 400 mg PO BID 12/30/23 12/30/23 History Fenofibrate Nanocrystallized 145 mg PO DAILY 12/30/23 12/30/23 History [Fenofibrate] Hydrocodone/Acetaminophen 1 tab PO Q8H PRN 12/30/23 12/30/23 History [Hydrocodone/Acetaminophen 7.5-325] Loratadine 1 tab PO HS 12/30/23 12/30/23 History Magnesium 400 mg PO HS 12/30/23 12/30/23 History Metoprolol Succinate (ER) [Toprol 100 mg PO QAM 12/30/23 12/30/23 History XL] Multivit with Calcium,Iron,Min 1 tab PO DAILY 12/30/23 12/30/23 History [Women's Multivitamin] Pioglitazone [Actos] 30 mg PO QAM 12/30/23 12/30/23 History Rosuvastatin [Crestor] 10 mg PO HS 12/30/23 12/30/23 History Sodium Bicarbonate Tab 650 mg PO QAM 12/30/23 12/30/23 History cloNIDine HCL [Catapres] 0.2 mg PO BID 12/30/23 12/30/23 History lisinopriL [Zestril] 5 mg PO HS 12/30/23 12/30/23 History metFORMIN HCL 1,000 mg PO BID 12/30/23 12/30/23 History oxyBUTYnin chloride [Ditropan] 5 mg PO BID 12/30/23 12/30/23 History Aspirin 325 mg PO BID #60 tab 01/06/24 Rx HYDROcodone/APAP 7.5-325MG [Gilman 1 - 2 tab PO Q6H PRN #32 tab 01/06/24 Rx 7.5-325] Sennosides [Senokot] 2 tab PO DAILY PRN #60 tablet 01/06/24 Rx Ketorolac [Toradol] 10 mg PO Q6HR #12 tab 01/07/24 Rx Allergies Allergy/AdvReac Type Severity Reaction Status Date / Time latex Allergy Rash/Hives Verified 01/06/24 06:03 Physical Exam Vitals: Vital Signs Temp Pulse Pulse Resp BP BP Pulse Ox 01/06/24 14:43 95 01/06/24 14:42 97.5 F L 78 20 148/72 91 L 01/06/24 12:39 80 16 109/58 97 01/06/24 11:39 84 16 127/49 99 01/06/24 11:10 79 16 144/56 99 01/06/24 10:39 80 16 148/99 98 01/06/24 10:24 82 16 138/60 100 01/06/24 10:09 82 16 145/55 99 01/06/24 09:54 79 16 140/84 99 01/06/24 09:39 83 16 140/56 99 01/06/24 09:24 82 16 137/52 99 01/06/24 09:09 79 16 121/48 97 01/06/24 08:54 80 16 119/70 96 01/06/24 08:39 98.8 F 82 16 124/51 95 01/06/24 06:01 97.7 F 76 18 170/80 97 Intake and Output 01/06/24 01/06/24 01/06/24 06:59 14:59 22:59 Intake Total 300 851 Output Total 30 Balance 300 821 Intake: IV 300 851 Output: Estimated Blood Loss 30 Other: # Voids 1 Weight 81.8 kg Results CBC & Chem 7: 01/07/24 08:02 01/06/24 06:30 Labs: Abnormal Lab Results - Last 24 Hours (Table) 01/06/24 01/06/24 01/06/24 Range/Units 06:30 09:07 16:18 Potassium 5.2 H (3.5-5.1) mmol/L POC Glucose (mg/dL) 126 H 153 H (70-110) mg/dL
--- NOTE | 2024-01-07 22:07 | P.PN ---
Subjective Progress Note Date: 01/07/24 HISTORY OF PRESENT ILLNESS: 73-year-old with active medical history of Breast cancer post left-sided mastectomy radiation and chemotherapy, history of type 2 diabetes, hypertension, hyperlipidemia, osteoarthritis, chronic lower back pain, chronic pain management, mild obesity, mild obstructive sleep apnea, COPD, mild incontinence, chronic constipation and other who has been suffering from severe arthritis of the right knee with failure to conservative management for the last few years patient had steroid injection physical therapy and topical care along with the b race and other with persistent pain discomfort and swelling with decreased mobility and ability to walk and ambulate. Patient ended up seeing Dr. Tillman with failure to conservative management decided to do right total knee arthroplasty which was done today successfully with no major complication. Patient hemodynamically stable, pain is well-controlled, medication reconciliation was done patient admitted to the floor afterward. I require little bit help while she is in the hospital and will see if she is getting need to go to any rehab. 01/03/2024: She has done much better so far since yesterday, still have pain management system and pain is under control, patient is ambulating to the bathroom with minimal help, will still require like some physical therapy the patient still believes she is going home with home care and help he will finalize medication and prepare for that purpose otherwise if there is a change or patient is not able to might consider rehab as an alternative. Otherwise Hemodynamically this morning with vitals blood pressure was slightly bit low at 98/62 with normal pulse but oxygen level is pretty normal. Laboratory value shows normal hemoglobin hematocrit blood sugar is running in the low 100. The patient is off IV pain meds she is still on pain management system along with hydrocodone and cyclobenzaprine seem to do well. Anticoagulation hernandez to remain on 2 aspirin a day. REVIEW OF SYSTEMS: CONSTITUTIONAL: Mildly overweight no acute respiratory distress. EYES: No icterus sclerae, no conjunctivitis. EARS, NOSE, MOUTH, THROAT, and FACE: No sore throat, lymphadenopathy, carotid bruits or deformity. RESPIRATORY: Slight shortness of breath no cough or wheezes. CARDIOVASCULAR: Positive PND orthopnea palpitation. GASTROINTESTINAL: No Abd pain, Nausea or vomiting, no Diarrhea or constipation, No GI Bleed, no distention or masses. GENITOURINARY: Negative for Hematuria or UTI, no kidney stones. INTEGUMENT/BREAST: Negative for any muscular injury with mild osteoarthritis.. HEMATOLOGIC/LYMPHATIC: Negative for bleed or purpura. MUSCULOSKELTAL: Generalized myalgia and lower back pain. NEURLOGICAL: No LOC, Sz or syncope, blurred vision dizziness or abnormality.. BEHAVIORAL/PSYCH: Negative. ENDOCRINE: Negative. PHYSICAL EXAMINATION: General Appearance: Alert, cooperative, no distress, appears stated age. Neck HEENT: Supple, no lymphadenopathy, no thyroid enlargement, no carotid bruits. Lungs: Mildly overweight no acute respiratory distress. Decreased expansion bilaterally with fine rhonchi no crackles or wheezes. Chest Wall: Decreased expansion with deep inspiration no tenderness and no deformity was found on exam, no costochondral pain or discomfort. Heart: Regular rate and rhythm, S1, S2 normal, no murmur, rub or gallop. Back: Symmetric, no curvature, ROM normal, no CVA tenderness. Abdomen: Soft, non-tender, bowel sounds active all four quadrants, no masses, no organomegaly. Extremities: Right knee so far with dressing around incision site no signs of induration or bleeding. Pulses: 2+ and symmetric. Skin: Skin color, texture, tugor normal, no rashes or lesions. Neurologic: Alert oriented x3 cranial nerves II through XII intact, no motor deficit, no abnormal balance or gait. ASSESSMENT AND PLAN: _Post right total knee arthroplasty: Has done very well overnight pain is under control continue pain management system along with hydrocodone stable and doing well. _Type 2 diabetes: Resume home meds with combination of metformin 1000 mg twice a day, pioglitazone 30 mg daily continue both medication continue Accu-Chek slidi ng scales coverage. Blood sugar has been running in the low 100s. _Atherosclerotic heart disease: Was seen and evaluated by cardiology before surgery and clear, will continue current medication medical management for now. She is quite not symptomatic doing well. _Chronic history of smoking and offered nicotine patch patient declined at this point continue supportive care she goes home and decide to be on Wellbutrin will be a good choice as well. _Hypertension: Remain on lisinopril 5 mg, clonidine 0.2 mg twice a day still on metoprolol succinate 100 mg daily. _Hyperlipidemia: Will continue patient on fenofibrate 145 mg a day along with rosuvastatin 10 mg a day. _Chronic pain syndrome: With chronic degenerative disc disease has been on hydrocodone along with Flexeril for the last few years post epidural injection and other pain management. _Overflow incontinence: Has been on oxybutynin with slightly better control symptoms. _Stage III chronic kidney disease: GFR at 44 will continue hydration watch for any decline in kidney function also patient has mild hyperkalemia to watch s ymptoms carefully repeat potassium level tomorrow morning. _History of breast cancer since 2005 has been in remission with no recurrent episode. _Severe GERD/GI prophylaxis: Continue patient on pantoprazole 40 mg daily. Discharge planning: Continue physical therapy continue to help patient the best we can if she is stable to be discharged home otherwise consider alternative for group home rehab. Objective - Vital Signs Vital signs: Vital Signs Temp 98.2 F 01/07/24 00:58 Pulse 73 01/07/24 00:58 Resp 17 01/07/24 00:58 BP 133/71 01/07/24 00:58 Pulse Ox 99 01/07/24 00:58 FiO2 Intake & Output 01/06/24 01/06/24 01/07/24 06:59 18:59 06:59 Intake Total 300 851 Output Total 30 Balance 300 821 Weight 81.8 kg Intake: IV 300 851 Output: Estimated Blood Loss 30 Other: # Voids 1 1 - Labs CBC & Chem 7: 01/07/24 08:02 01/06/24 06:30 Labs: Abnormal Lab Results - Last 24 Hours (Table) 01/06/24 01/06/24 01/06/24 Range/Units 06:30 09:07 16:18 Potassium 5.2 H (3.5-5.1) mmol/L POC Glucose (mg/dL) 126 H 153 H (70-110) mg/dL 01/06/24 Range/Units 21:00 Potassium (3.5-5.1) mmol/L POC Glucose (mg/dL) 205 H (70-110) mg/dL
[2024-01-08 05:42] LABS: Glucose,Whole Blood 110 mg/dL (70-110)
[2024-01-08 07:11] VITALS: BP 152/74; PULSE 77; RESP 18
[2024-01-08 11:46] LABS: Glucose,Whole Blood 155 mg/dL (70-110)
== END 2024-01-08 15:22 | disposition home health service (06) ==
LOC: OR 05:33 → 4SSUR 08:36 → OR 01-08 15:22
PROVIDERS: ATTEND Orthopaedic Surgery
DX: M17.11 Unilateral primary osteoarthritis, right knee
CPT/HCPCS: 64448; 64999; 84132; 85025